=== PATIENT | female | born 1950 | race Caucasian/White ===

== ENCOUNTER 2017-11-10 12:02 | Emergency (ER) | payer MEDICARE ==
--- NOTE | 2017-11-10 12:13 | ED ---
Fall HPI - General Stated Complaint: Fall Time Seen by Provider: 11/10/17 12:02 Source: EMS, RN notes reviewed, old records reviewed - History of Present Illness Initial Comments: This is a 66-year-old female with dementia supranuclear palsy who is wheelchair- bound apparently fell out of her wheelchair prior to admission. She landed on a carpeted floor she is sustain abrasions to the face and nose. No loss of consciousness no other, reported to the patient's habitus a c-collar was not placed. There seems be no distal extremity injury or new deficits. MD Complaint: fall - Related Data Home Medications Medication Instructions Recorded Confirmed Amantadine HCl [Symmetrel] 100 mg PO DAILY 12/03/15 11/10/17 Cholecalciferol [Vitamin D3] 2,000 unit PO DAILY@1700 12/03/15 11/10/17 Vitamin B Complex 1 cap PO DAILY@1700 12/03/15 11/10/17 Acetaminophen Tab [Tylenol Tab] 650 mg PO Q4H PRN 11/10/17 11/10/17 Artificial Tears Ointment 0.25 inch OPHTHALMIC HS PRN 11/10/17 11/10/17 [Lubrifresh Pm Ointment] Bisacodyl [Dulcolax] 10 mg RECTAL DAILY PRN 11/10/17 11/10/17 Calcium Carbonate [Calcium] 600 mg PO DAILY PRN 11/10/17 11/10/17 Ciprofloxacin HCl [Cipro] 250 mg PO Q12HR 11/10/17 11/10/17 Clotrimazole Cream [Lotrimin Cream] 1 applic TOPICAL BID PRN 11/10/17 11/10/17 Docusate [Colace] 100 mg PO DAILY 11/10/17 11/10/17 Lactose-Reduced Food [Ensure Plus] 4 oz PO BID 11/10/17 11/10/17 Levothyroxine Sodium [Synthroid] 112 mcg PO DAILY 11/10/17 11/10/17 Mag Hydrox/Al Hydrox/Simeth 15 ml PO Q6H PRN 11/10/17 11/10/17 [Maalox] Magnesium Hydroxide [Milk of 2,400 mg PO DAILY PRN 11/10/17 11/10/17 Magnesia] Metoprolol Tartrate [Lopressor] 25 mg PO BID 11/10/17 11/10/17 Na Phos,M-B/Na Phos,Di-Ba [Fleet 133 ml RECTAL DAILY PRN 11/10/17 11/10/17 Adult] Triamcinolone 0.1% Cream [Kenalog] 1 applicatio TOPICAL BID PRN 11/10/17 Previous Rx's Medication Instructions Recorded Lisinopril [Prinivil] 10 mg PO BID #0 12/06/15 Pravastatin Sodium [Pravachol] 20 mg PO HS #0 12/06/15 Allergies Allergy/AdvReac Type Severity Reaction Status Date / Time iodine Allergy Rash/Hives Verified 11/10/17 12:39 meperidine HCl [From Demerol] Allergy Nausea & Verified 11/10/17 12:39 Vomiting Sulfa (Sulfonamide Allergy Nausea & Verified 11/10/17 12:39 Antibiotics) Vomiting Review of Systems ROS Statement: Those systems with pertinent positive or pertinent negative responses have been documented in the HPI. ROS Other: All systems not noted in ROS Statement are negative. Limitations: ROS unobtainable due to patients medical condition Past Medical History Past Medical History: Hyperlipidemia, Hypertension, Neurologic Disorder, Renal Disease, Thyroid Disorder Additional Past Medical History / Comment(s): 12/03/2015- pt. present to [facility] ER with weakness, pts. 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 Pt and states she is having severe problems with maintaining balance. She falls frequently, in fact she fell 10 times today and has struck her head several times as well. Pt and state balance problems probably began 6 months ago but have significantly increased in the last week. She falls even while using her walker. When she stands she falls backward and when she is sitting in a chair she may fall forward. Other HX: hypothyroidism, bilateral cataracts, R kidney stones- had surgically removed. History of Any Multi-Drug Resistant Organisms: None Reported Past Surgical History: Cholecystectomy Additional Past Surgical History / Comment(s): R KIDNEY SURGERY for stone removal , R STRABISMUS SURGERY, colonoscopy which was clear, cataract removal Past Anesthesia/Blood Transfusion Reactions: No Reported Reaction Additional Past Anesthesia/Blood Transfusion Reaction / Comment(s): Pt has never recieved blood. Past Psychological History: No Psychological Hx Reported Additional Psychological History / Comment(s): Pt resides in her home with her . She uses a walker to ambulate. Before having balance problems she was fairly independent. She performed her own ADL's. She feeds herself. She no longer drives. Due to her balance problems, she has had several falls. Pt' s is very helpful to her. Smoking Status: Former smoker Past Alcohol Use History: Rare Past Drug Use History: None Reported - Past Family History Father Family Medical History: Cancer Additional Family Medical History / Comment(s): Father of prostates cancer at age 75yrs. Mother Family Medical History: Cancer Additional Family Medical History / Comment(s): melanoma General Exam - General Exam Comments Initial Comments: This a well-developed alert but lethargic female Limitations: altered mental status, physical limitation General appearance: alert, lethargic Head exam: Present: normocephalic (Abrasion seen to the nose and left face no repairable wounds. The nasal exam appears consistent with a fracture. There is tenderness palpation appears be some mild deviation to the right. No active bleeding at this time.) Eye exam: Present: normal appearance, PERRL, EOMI. Absent: scleral icterus, conjunctival injection, periorbital swelling Pupils: Present: normal accommodation ENT exam: Present: mucous membranes moist, other (Dry blood in her nasal passages is she on the left. No active bleeding at this time there is a scant amount of blood in the posterior oropharynx likely secondary to the nasal blood dentition is intact. Superficial abrasion seen to the right upper inner lip.) Neck exam: Present: normal inspection. Absent: tenderness, meningismus, lymphadenopathy Respiratory exam: Present: normal lung sounds bilaterally. Absent: respiratory distress, wheezes, rales, rhonchi, stridor Cardiovascular Exam: Present: regular rate, normal rhythm, normal heart sounds. Absent: systolic murmur, diastolic murmur, rubs, gallop, clicks GI/Abdominal exam: Present: soft, normal bowel sounds. Absent: distended, tenderness, guarding, rebound, rigid Extremities exam: Present: normal inspection, full ROM, normal capillary refill. Absent: tenderness, pedal edema, joint swelling, calf tenderness Back exam: Present: normal inspection Neurological exam: Present: alert, altered, CN II-XII intact Psychiatric exam: Present: flat affect Skin exam: Present: warm, dry. Absent: intact Course Vital Signs 11/10/17 12:10 Temperature 96.8 F L Pulse Rate 79 Respiratory 20 Rate Blood Pressure 142/75 O2 Sat by Pulse 97 Oximetry Medical Decision Making - Medical Decision Making I did discuss findings with the patient and family members. Patient will be discharged with ENT referral. No suture repair is indicated on the facial wounds. Reevaluation REVEALS no open wounds dentition is intact very minor superficial abrasions to the right upper lip. - Lab Data Result diagrams: 11/10/17 12:51 11/10/17 12:51 Lab Results 11/10/17 11/10/17 11/10/17 Range/Units 12:51 12:51 12:51 WBC 7.5 (3.8-10.6) k/uL RBC 4.69 (3.80-5.40) m/uL Hgb 13.7 (11.4-16.0) gm/dL Hct 42.2 (34.0-46.0) % MCV 90.0 (80.0-100.0) fL MCH 29.1 (25.0-35.0) pg MCHC 32.4 (31.0-37.0) g/dL RDW 12.8 (11.5-15.5) % Plt Count 255 (150-450) k/uL Neutrophils % 78 % Lymphocytes % 13 % Monocytes % 6 % Eosinophils % 2 % Basophils % 0 % Neutrophils # 5.8 (1.3-7.7) k/uL Lymphocytes # 1.0 (1.0-4.8) k/uL Monocytes # 0.4 (0-1.0) k/uL Eosinophils # 0.1 (0-0.7) k/uL Basophils # 0.0 (0-0.2) k/uL Sodium 146 H (137-145) mmol/L Potassium 4.5 (3.5-5.1) mmol/L Chloride 104 (98-107) mmol/L Carbon Dioxide 28 (22-30) mmol/L Anion Gap 14 mmol/L BUN 14 (7-17) mg/dL Creatinine 0.60 (0.52-1.04) mg/dL Est GFR (CKD-EPI)AfAm >90 (>60 ml/min/1.73 sqM) Est GFR (CKD-EPI)NonAf >90 (>60 ml/min/1.73 sqM) Glucose 99 (74-99) mg/dL Calcium 9.9 (8.4-10.2) mg/dL Magnesium 2.1 (1.6-2.3) mg/dL Total Bilirubin 0.5 (0.2-1.3) mg/dL AST 30 (14-36) U/L ALT 44 (9-52) U/L Alkaline Phosphatase 136 H (38-126) U/L Total Creatine Kinase 44 (30-135) U/L CK-MB (CK-2) 2.4 (0.0-2.4) ng/mL CK-MB (CK-2) Rel Index 5.5 Total Protein 6.8 (6.3-8.2) g/dL Albumin 4.1 (3.5-5.0) g/dL Urine Color Urine Appearance (Clear) Urine pH (5.0-8.0) Ur Specific Hurst (1.001-1.035) Urine Protein (Negative) Urine Glucose (UA) (Negative) Urine Ketones (Negative) Urine Blood (Negative) Urine Nitrite (Negative) Urine Bilirubin (Negative) Urine Urobilinogen (<2.0) mg/dL Ur Leukocyte Esterase (Negative) 11/10/17 Range/Units 14:30 WBC (3.8-10.6) k/uL RBC (3.80-5.40) m/uL Hgb (11.4-16.0) gm/dL Hct (34.0-46.0) % MCV (80.0-100.0) fL MCH (25.0-35.0) pg MCHC (31.0-37.0) g/dL RDW (11.5-15.5) % Plt Count (150-450) k/uL Neutrophils % % Lymphocytes % % Monocytes % % Eosinophils % % Basophils % % Neutrophils # (1.3-7.7) k/uL Lymphocytes # (1.0-4.8) k/uL Monocytes # (0-1.0) k/uL Eosinophils # (0-0.7) k/uL Basophils # (0-0.2) k/uL Sodium (137-145) mmol/L Potassium (3.5-5.1) mmol/L Chloride (98-107) mmol/L Carbon Dioxide (22-30) mmol/L Anion Gap mmol/L BUN (7-17) mg/dL Creatinine (0.52-1.04) mg/dL Est GFR (CKD-EPI)AfAm (>60 ml/min/1.73 sqM) Est GFR (CKD-EPI)NonAf (>60 ml/min/1.73 sqM) Glucose (74-99) mg/dL Calcium (8.4-10.2) mg/dL Magnesium (1.6-2.3) mg/dL Total Bilirubin (0.2-1.3) mg/dL AST (14-36) U/L ALT (9-52) U/L Alkaline Phosphatase (38-126) U/L Total Creatine Kinase (30-135) U/L CK-MB (CK-2) (0.0-2.4) ng/mL CK-MB (CK-2) Rel Index Total Protein (6.3-8.2) g/dL Albumin (3.5-5.0) g/dL Urine Color Yellow Urine Appearance Clear (Clear) Urine pH 6.0 (5.0-8.0) Ur Specific Hurst 1.019 (1.001-1.035) Urine Protein Negative (Negative) Urine Glucose (UA) 1+ H (Negative) Urine Ketones Negative (Negative) Urine Blood Negative (Negative) Urine Nitrite Negative (Negative) Urine Bilirubin Negative (Negative) Urine Urobilinogen <2.0 (<2.0) mg/dL Ur Leukocyte Esterase Negative (Negative) - EKG Data -: EKG Interpreted by Oh EKG shows normal: sinus rhythm (Normal sinus rhythm rate of 81. Interval 154 QRS duration 80 daily since QTC of 34/[address]-T wave changes) - Radiology Data Radiology results: report reviewed (I did review the imaging and report there is evidence of a nasal fracture no other fractures are seen.), image reviewed Disposition Clinical Impression: Fall, Nasal fracture, Epistaxis, Abrasion of face Disposition: HOME SELF-CARE Condition: Good Instructions: Nasal Fracture (ED), Nosebleed (ED), Fall Prevention for Older Adults (ED), Abrasion (ED) Referrals: Haylie Jaramillo MD [Primary Care Provider] - 1-2 days Dc Varner DO [Doctor of Osteopathic Medicine] - 1-2 days
[2017-11-10] MEDS ORDERED: DIPH,PERTUS(ACELL)TETVAC-LF 0.5 ML VIAL IM ONE (12:24)
[2017-11-10 13:00] LABS: Basophils % (A) 0 %; Eosinophils # (A) 0.1 k/uL (0-0.7); Eosinophils % (A) 2 %; HCT 42.2 % (34.0-46.0); HGB 13.7 gm/dL (11.4-16.0); Lymphocytes % (A) 13 %; MCH 29.1 pg (25.0-35.0); MCHC 32.4 g/dL (31.0-37.0); Mean Platelet Volume 8.4; Monocytes # (A) 0.4 k/uL (0-1.0); Monocytes % (A) 6 %; Neutrophils # (A) 5.8 k/uL (1.3-7.7); Neutrophils % (A) 78 %; Platelet Count 255 k/uL (150-450); RBC 4.69 m/uL (3.80-5.40); RDW 12.8 % (11.5-15.5); WBC 7.5 k/uL (3.8-10.6)
[2017-11-10 13:09] LABS: ALT 44 U/L (9-52); AST 30 U/L (14-36); Albumin 4.1 g/dL (3.5-5.0); Alkaline Phosphatase 136 U/L (38-126); Anion Gap 14 mmol/L; Blood Urea Nitrogen 14 mg/dL (7-17); Calcium 9.9 mg/dL (8.4-10.2); Carbon Dioxide 28 mmol/L (22-30); Chloride 104 mmol/L (98-107); Glucose 99 mg/dL (74-99); Magnesium 2.1 mg/dL (1.6-2.3); Potassium 4.5 mmol/L (3.5-5.1); Sodium 146 mmol/L (137-145); Total Bilirubin 0.5 mg/dL (0.2-1.3); Total Protein 6.8 g/dL (6.3-8.2)
[2017-11-10 13:28] LABS: Creatine Kinase MB 2.4 ng/mL (0.0-2.4)
--- NOTE | 2017-11-10 14:39 | CT ---
EXAMINATION TYPE: CT facial bones wo con DATE OF EXAM: 11/10/2017 COMPARISON: NONE HISTORY: Fall face first out of wheelchair CT DLP: 2172 (brain, cervical and facial) mGycm Automated exposure control for dose reduction was used. TECHNIQUE: CT scan of the sinuses is performed without contrast, axial images are obtained, coronal r eformatted images are also reviewed. FINDINGS: There is soft tissue swelling along the left orbit and above the nose. There is a laceratio n of the left side of the nose. There is a nasal fracture which is mildly displaced towards the right . The septum is also fractured but it is undisplaced. The orbits are unremarkable. The zygomatic arches are intact. The pterygoid plates are intact. The orbital margins of the tellez of the maxillary sinuses are intact. IMPRESSION: MINIMALLY DISPLACED NASAL FRACTURE.
[2017-11-10 14:42] LABS: Appearance,Urine Clear (Clear); Bilirubin,Urine Negative (Negative); Blood,Urine Negative (Negative); Color,Urine Yellow; Glucose,Urine (UA) 1+ (Negative); Ketones,Urine Negative (Negative); Leukocyte Esterase,Urine Negative (Negative); Nitrite,Urine Negative (Negative); Protein,Urine Negative (Negative); Specific Gravity,Urine 1.019 (1.001-1.035); Urobilinogen,Urine <2.0 mg/dL (<2.0)
--- NOTE | 2017-11-10 14:44 | CT ---
EXAMINATION TYPE: CT brain adrienne hardy DATE OF EXAM: 11/10/2017 COMPARISON: Previous CT scan of the brain dated 12/06/2015 HISTORY: Fall face first out of wheelchair CT DLP: 2172 (brain, cervical and facial) mGycm Automated exposure control for dose reduction was used. TECHNIQUE: CT scan of the head and cervical spine are performed without contrast. FINDINGS: BRAIN: There are generalized changes of sulcal prominence and ventriculomegaly, compatible with atrop hic change. There is diffuse periventricular white matter lucency, compatible with chronic white jose miguel er ischemic change. There is no acute focal lesion, mass effect or midline shift identified. I do not see evidence of intracranial blood. The bony calvarium is intact. Nasal fractures are discussed else where. There is a laceration of the left side of the nose. IMPRESSION: 1. NO ACUTE INTRACRANIAL ABNORMALITY. 2. ATROPHIC CHANGE. 3. CHRONIC WHITE MATTER ISCHEMIC CHANGE. 4. NASAL FRACTURE AND A LACERATION OF THE LEFT SIDE OF THE NOSE. CERVICAL SPINE: Visualized portions of the lungs are clear. Paraspinal soft tissues are normal. Vertebral body height and alignment are maintained. Atlantoaxial relationships are normal. There is d egenerative disc disease and hypertrophic spondylosis throughout the spine with relative sparing of C 2-3. There is diffuse uncovertebral joint disease also with relative sparing of C2-3. There is mild f acet arthropathy at L2-3, L3-4 and to a lesser extent L4-5. No definite protrusion is seen. No fractu re is identified. IMPRESSION: 1. No Acute Osseous Lesion. 2. Degenerative Change.
--- NOTE | 2017-11-10 14:45 | XR ---
EXAMINATION TYPE: XR chest 1V portable DATE OF EXAM: 11/10/2017 HISTORY: pain. REFERENCE: Previous study dated 12/03/2015. FINDINGS: The lungs are clear. Pleural space are clear. Heart is minimally enlarged. IMPRESSION: NO ACUTE INTRATHORACIC ABNORMALITY.
[2017-11-10] MEDS ORDERED: KETOROLAC 30 MG/ML 1 ML VIAL IVP STA (15:02)
[2017-11-10 15:53] VITALS: BP 135/70; PULSE 76; RESP 16; TEMP 97
== END 2017-11-10 15:53 | disposition home or self-care (01) ==
LOC: EC 12:02
DX: S02.2XXA Fracture of nasal bones, initial encounter for closed fracture (principal); S00.81XA Abrasion of other part of head, initial encounter; R04.0 Epistaxis; E03.9 Hypothyroidism, unspecified; I10 Essential (primary) hypertension; F03.90 Unspecified dementia, unspecified severity, without behavioral disturbance, psychotic disturbance, mood disturbance, and anxiety; Z87.891 Personal history of nicotine dependence; Z99.3 Dependence on wheelchair; Z23 Encounter for immunization; W05.0XXA Fall from non-moving wheelchair, initial encounter; Y92.009 Unspecified place in unspecified non-institutional (private) residence as the place of occurrence of the external cause
CPT/HCPCS: 36415; 93005; 80053; 82550; 82553; 83735; 85025; 81003; 71045; 72125; 70486; 70450; 90715; 99285; 96374; 90471; J1885